=== PATIENT | male | born 1930 | race Caucasian/White ===

== ENCOUNTER 2016-06-22 03:05 | Inpatient (IN) | payer MEDICARE, OTHER ==
[~2016-06-22] VITALS: Ht 180.3 cm; Wt 112.6 kg
--- NOTE | ~2016-06-22 | ECH ---
Transthoracic Echocardiography Report (TTE) Demographics Patient Name CHITRA EDMONDSON Date of Study 06/23/2016 P Patient Number [id number] Visit Number [id number] Date of 1930 Room Number 311 Accession Number [id number] Gender Male Age 86 year(s) Referring Laura Dobson Transitional [employer] Teacher Noemy Encarnacion [facility] Physician Physician Interpreting Roshan Bryan [facility] Chief Physician Supervising Ordering Physician Laura Dobson MD, MD/P Nurse Stress [employer] Conclusions Summary Technically fair exam. The estimated left ventricular ejection fraction is 50-55%. Moderate to severe left ventricular hypertrophy. The right atrium is moderately dilated. Mild mitral regurgitation by color Doppler. There is trivial aortic regurgitation by color Doppler. Procedure Type of Study TTE procedure:Echo Complete SF. Procedure Date Date: 06/23/2016 Start: 10:28 AM Technical Quality: Fair due to body habitus. Additional Indications:AV block Appropriate Use Criteria: 9 Height: 71 inches Weight: 222 pounds BSA: 2.2 m Rhythm: Atrial fibrillation HR: 65 bpm BP: 128/52 mmHg M-Mode/2D Measurements LV Diastolic Dimension: 4.36 cm LV Systolic Dimension: 3.83 cm LV Septum Diastolic: 1.83 cm LV PW Diastolic: 1.42 cm AO Root Dimension: 2.9 cm Cardiac Output: 3.56 l/min LA Dimension: 4.69 cm Cardiac Index: 1.62 l/min*m RV Diastolic Dimension: 2.98 cm LA volume index: 33 ml/m LVOT: 1.88 cm IVC Inspiration: 1.85 cm LVOT VTI: 19.73 cm RV Base: 4.7 cm LV Stroke volume: 54.74 ml RV Mid: 3.4 cm LV Stroke volume index: 24.88 ml/m RV Length: 6.9 cm Doppler Measurements AV Peak Velocity: 1.15 m/s MV Peak E-Wave: 0.82 m/s AV Peak Gradient: 5.29 mmHg MV Peak A-Wave: 1.02 m/s AV Mean Gradient: 4.26 mmHg MV E/A Ratio: 0.8 LVOT Peak Velocity: 0.88 m/s MV P1/2t: 57 msec AV Area (Continuity):1.87 cm MV Deceleration Time: 196.5 msec TR Velocity:2.48 m/s MV Area (PHT): 3.86 cm TR Gradient:24.62 mmHg PV Peak Velocity: 0.94 m/s Estimated RAP:5 mmHg PV Peak Gradient: 3.5 mmHg Estimated RVSP: 30 mmHg Estimated PASP: 29.62 mmHg RA Area: 25.16 cm Findings Left Ventricle The left ventricle is normal in size . Moderate to severe left ventricular hypertrophy. Diastolic function indeterminate due to patient's arrhythmia. Right Ventricle Normal right ventricle structure and function. Left Atrium Normal left atrial size. Right Atrium The right atrium is moderately dilated. Mitral Valve Normal mitral valve structure and function. Mild mitral regurgitation by color Doppler. Aortic Valve The aortic valve is mildly sclerotic. There is trivial aortic regurgitation by color Doppler. Tricuspid Valve Normal appearing tricuspid valve. Trivial tricuspid regurgitation by color Doppler. Pulmonic Valve Normal pulmonic valve structure and function. Pericardial Effusion No evidence of pericardial effusion. Miscellaneous Visualized portions of the aortic root and ascending aorta appear normal in size. Pleural Effusion No evidence of pleural effusion. Contractility Score LV regional wall motion:(0-Non visualized 1-Normal 2-Hypokinesis 3-Akinesis 4-Dyskinesis 5-Aneurysm) Signature
--- NOTE | ~2016-06-22 | WND ---
ADMIT: 06/22/2016 RM/LOC: 410 [facility] MR#: [id number] [id number] [place], [place] [address] DELVISCHITRA Carly [address] [place] [address] Wound Care Clinic SEX: M AGE: 86 : 1930 DATE OF VISIT: 07/08/2016 TIME IN: 0840 hours. TIME OUT: 0855 hours. REASON FOR VISIT: Evaluation and treatment of skin concerns. HISTORY OF PRESENT ILLNESS: This is an 86-year-old male, who was seen previously in Wound Care in 2014 for right lower extremity venous insufficiency ulceration, bilateral lower extremity edema, and pressure ulceration over the right buttock. He was also seen in 2016 for evaluation of left lower extremity edema related to venous insufficiency. Most recently, he has been admitted to [facility] on 06/22/2016 with weakness and fatigue. He has been seen previously by Wound Care during this admission. According to the patient, he had toenails trimmed prior to admission and he had two blackened areas on his toe tips from where the skin was snipped along with the nail trimming. Wound Care follows today for re- evaluation and care. PAST MEDICAL HISTORY: 1. Hypertension. 2. Hyperlipidemia. 3. Multiple myeloma. 4. Type 2 diabetes mellitus. 5. Bilateral total knee arthroplasty. 6. Glaucoma. 7. Depression. 8. BPH. 9. Chronic bilateral lower extremity edema with venous insufficiency. 10.Chronic left lower extremity weakness. 11.Previous pressure ulceration on his buttock. CURRENT MEDICATIONS: Per the MAR. Please see the MAR for further details. 1. Apresoline. 2. Flomax. 3. Lexapro. 4. Mylicon. 5. Neurontin. 6. Nilstat. 7. Remeron. 8. Dulera. 9. DuoNeb. 10.Trusopt. 11.Xalatan. 12.NovoLog. 13.Lidoderm patch. 14.Heparin flush. 15.Normal saline. 16.Protonix. P.R.N. medications: ADMIT: 06/22/2016 RM/LOC: 410 [facility] MR#: [id number] [address] [address] CHITRA EDMONDSON [address] [place] [address] Wound Care Clinic SEX: M AGE: 86 : 1930 1. Colace. 2. Glutose. 3. Hydrocodone/acetaminophen. 4. Maalox. 5. Milk of magnesia. 6. Surfak. 7. Xanax. 8. DuoNeb. 9. Glucagon. 10.Tylenol suppositories. 11.Nitrostat. 12.Bactroban. 13.Nitro-Bid. 14.Reglan. 15.Zofran. ALLERGIES: No known medication allergies. FAMILY HISTORY: Significant for brother with bladder cancer. Mother with lung cancer. Second brother with cancer, type unknown. Father with a stroke. SOCIAL HISTORY: He is . He does reside in [place]. He is retired from working at [employer]. He used to smoke a pack and a half of cigarettes per day for 10-15 years, but quit more than 45 years ago. Occasional beer. No street drug usage. He is on a regular low carb diet. Likes coffee 1-2 cups per day, no soda. Highest level education is high school. He does have adult children, grandchildren, and great grandchildren. REVIEW OF SYSTEMS: He is examined in a hospital room where he is awake, alert, and oriented x3. He denies any recent fever or chills. No nausea or vomiting. His appetite is improving. He does have a congested cough. He denies any chest pain. He denies any pain in his legs. PHYSICAL EXAMINATION: VITAL SIGNS: Temperature 97.4, pulse 84, respirations 16, blood pressure 118/47, O2 sats with oxygen per nasal cannula is 97%. Body wide skin exam was done. He does have edema noted to both upper extremities. He does have bruising noted to both upper extremities. He has a small amount of serous oozing from the posterior left elbow. On his right wrist area, he has a small superficial ulceration that measures 1 cm x 0.4 cm, depth of 0.1 cm with a red moist wound base. No surrounding erythema or induration. To the bilateral lower extremities, he has edema noted. Right lower extremity 28 cm, ankle 28 cm, and calf 20 cm, malleolus is 29 cm. Posterior tibialis and dorsalis pedis is 1+. No openings noted on his villatoro or calf. On the tip of his second toe, next to his toenail, is a small dark crust that measures 0.4 cm x 0.6 cm. No surrounding erythema or induration. On the tip of the third toes, is a residual callus and pinpoint crust but no drainage, no redness, no irritation. To the left lower extremity, foot ADMIT: 06/22/2016 RM/LOC: 410 [facility] MR#: [id number] [address] [place] [address] [place] [address] Wound Care Clinic SEX: M AGE: 86 : 1930 circumference 26.5 cm, ankle 25 cm, and calf 20 cm, malleolus is 28 cm. Posterior tibialis and dorsalis pedis is 1+. He does have edema noted. No open areas noted. On his abdomen, toward the right pannus, is a large area of bruising that measures approximately 18 cm x 26 cm. He also has a dry crust on the right abdomen that measures 1 cm x 3 cm, but no surrounding erythema or induration. ASSESSMENT: 1. Edema to all four extremities. 2. Category III skin tear to right hand. 3. Residual traumatic injuries to toe tips, second and third toe, right foot. TREATMENT PLAN: At this point in time, we will continue with the current treatment plan. He is on a pressure relief mattress. Encouraged position changes every 2 hours. We will leave the crust to the toes open to the air at this point. Continue with Mepilex border to the right hand skin tear. Continue with EdemaWear to all of the four extremities. Thank you for this referral, and Wound will continue to follow while he is inpatient. Latonya Tuttle APRN/ kinza JOB #: [id number] CC: Zack Sanchez, Attending Physician Zack Sanchez, Family Physician
--- NOTE | ~2016-06-22 | CO ---
ADMIT: 06/22/2016 RM/LOC: 311 [facility] MR#: [id number] [address] [address] [address]ER [address] [place] [address] Consultation SEX: M AGE: 86 : 1930 DATE OF CONSULTATION: 07/01/2016 ATTENDING PHYSICIAN: Zack Sanchez CONSULTING PHYSICIAN: Braulio Knight MD ADDENDUM: For details of our full consultation, please see Zack Ornelas's note. I have reviewed his full note including his assessment and plan and I am in agreement with all of that. Mr. Streeter does have apparent ileus likely secondary to all that he has going on medically. CT scan, however, was approaching a week ago now. Nasogastric tube has been placed today. We will see how that does as far as symptom improvement overnight and reassess tomorrow. If symptoms are no better, I would consider repeating the CT scan with IV and oral contrast to reassess for obstructive findings versus ongoing signs of ileus. I discussed that with Manuel and his and they are in agreement with that plan. He certainly is at risk for any operative intervention because of his significant comorbidities, advanced age, and the like. Braulio Knight MD/ modl JOB #: [id number] CC: Zack Sanchez, Attending Physician Zack Sanchez, Family Physician
--- NOTE | 2016-06-22 19:06 | ER ---
ADMIT: 06/22/2016 RM/LOC: 311 [facility] MR#: [id number] [address] [address] DELVISCHITRA HASKINS [address] [place] [address] Emergency Room Report SEX: M AGE: 86 : 1930 DATE: 06/22/2016 The patient is an 86-year-old male who was brought by family because he woke up during the night and was feverish and had chills, was slightly confused, and was not at his baseline mental status. Per family and per chart, the patient had history of multiple myeloma, colon cancer, DVT, BPH and bowel obstruction. Patient per family is already on Coumadin. In the ER, patient had fever of 104, heart rate was 127-130, systolic blood pressure was about 115. The patient received Tylenol. Sepsis workup was started. On physical examination, the patient was awake, alert, would answer the question but when I brought the and daughters to the room, they said that the patient is slightly confused and is not at his baseline. The patient denied any pain or discomfort and states he is short of breath but he has been always short of breath at baseline. PHYSICAL EXAMINATION: VITAL SIGNS: In the ER, at the beginning patient had O2 saturation of 89%-90% at room air, and was put on 2 L nasal cannula and O2 saturation increased to mid 90s. NEURO: The patient had normal motor and sensory grossly. Cerebellar test grossly not contributed. HEAD and NECK: Exam did not find any abnormalities. I could not hear any bruit in the neck, trachea midline. LUNGS: Decreased breath sound bilaterally but I did not hear any crackles or wheezing. HEART: Sounds are normal. There is no murmur and no radiation of the murmur to the neck. ABDOMEN: Distended, but is nontender and bowel sounds are normal. There is no back pain or tenderness. EXTREMITIES: In the bilateral lower extremities, there is mild erythema mostly on the right leg which per patient has been there for some time. The patient has some tenderness to the palpation of the posterior right leg. Peripheral pulses are grossly normal. The patient moves all extremities. LABORATORY AND DIAGNOSTIC DATA: CT of the brain did not show any acute changes or bleeding. Chest x-ray was noncontributory. Cultures were sent. Urinalysis did not show any infection. Influenza antigen A and B were negative. White blood cell was 7.8, and absolute neutrophil count was 7.2, hemoglobin was 14.1. Lactic acid was 3.1, and procalcitonin was 1.5. Electrolytes; potassium was 4.6 with sodium of 142, carbon dioxide was 21. The patient had normal AST and ALT, creatinine was 1.6 and troponin was negative. EKG did not show any ST or T changes. INR was 2.2 with PTT of 32, and D-dimer was elevated to 1.92. The patient received IV fluid. CT angio of the chest was suggestive of pulmonary emboli in the right lower lobe although ADMIT: 06/22/2016 RM/LOC: 311 [facility] MR#: [id number] [address] [address] CHITRA EDMONDSON [address] [place] [address] Emergency Room Report SEX: M AGE: 86 : 1930 there are no obvious signs of infection except for possible cellulitis of the right leg. Considering the background of multiple myeloma, the increased risk of infection, 15 times should always be considered in these patients. Pulmonary emboli could also cause fever to some degree. The patient was started on heparin per protocol. After receiving fluid and empiric antibiotic, vancomycin and Zosyn, patient was reassessed. Tachycardia decreased to 105, systolic blood pressure is around 95-100. Per family, patient is more alert and oriented than before and answers all questions. Internal Medicine was consulted and patient was admitted for further followups and treatments of right lower lobe pulmonary emboli, altered mental status, SIRS, with questionable right lower extremity DVT. Doppler ultrasound of the lower extremities is pending. Salomon Alvarenga MD/ kinza JOB #: [id number] CC: Zack Sanchez MD, Attending Physician Zack Sanchez MD, Family Physician
--- NOTE | 2016-06-23 15:06 | CO ---
ADMIT: 06/22/2016 RM/LOC: 311 [facility] MR#: [id number] [address] [address] CHITRA EDMONDSON [address] [place] [address] Consultation SEX: M AGE: 86 : 1930 DATE OF CONSULTATION: 06/22/2016 ATTENDING PHYSICIAN: Zack Sanchez CONSULTING PHYSICIAN: Bc Islas MD REASON FOR CONSULT: Rhythm change. HISTORY OF PRESENT ILLNESS: Chitra is an 86-year-old gentleman with no prior cardiac history. I was asked to see him at the request of Dr. Sanchez after he was admitted with probable sepsis in the midst of immunocompromised state. During this hospitalization with hypotension, he had a rhythm change, appears to be second-degree type 1 AV block. His history is significant for multiple myeloma and history of colon cancer. He is diabetic and has a history of DVT, on chronic anticoagulation. He came into the hospital early today when he woke up during the night with a febrile illness. He had chills. I am not sure, it sounds like rigors. He had mental status changes. His blood culture is already showing Streptococcus species. His CT and chest x-ray suggested pneumonia, other potential cause would be a cellulitis of the lower extremities. He has received fluids. His blood pressure is better. His lactic acid was initially 3. His potassium was normal. PAST MEDICAL HISTORY: Significant for venous thrombosis. He has a history of colon cancer. He is actively treated for multiple myeloma. He has diabetes, hypertension, history of gout, neuropathy, and spinal stenosis. No known medical allergies. MEDICATIONS: Include: 1. Gabapentin. 2. Coumadin. 3. Diovan. 4. Glipizide. 5. Flomax. 6. Remeron. 7. Aldactone. 8. Dorzolamide. 9. . 10.Heather lynn.rmason. FAMILY HISTORY: Negative for premature coronary disease, otherwise noncontributory. SOCIAL HISTORY: He is . 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 Denies alcohol, significant smoking history, or illicit drug use. REVIEW OF SYSTEMS: A full 12-point review of systems was reviewed with the ADMIT: 06/22/2016 RM/LOC: 311 [facility] MR#: [id number] [address] [address] DELVISCHITRA Carly [address] [place] [address] Consultation SEX: M AGE: 86 : 1930 patient and noncontributory other than that mentioned above. PHYSICAL EXAMINATION: VITAL SIGNS: His blood pressure is currently 147/86. There is some question if it is accurate. His pulse is in the 60s. Respirations 18. He has a low grade fever of 100. GENERAL: He is alert. He is oriented. He answers all questions appropriately. He is actually in good humor. SKIN: Pale, but he feels warm. He is not clammy. Has good capillary refill. EYES: Sclerae clear. No xanthelasmas. ENT: There are transmitted upper airway sounds heard in his neck. Oral mucosa is pink and moist. No jugular venous distention or carotid bruits. CHEST: He has diffuse few expiratory wheezes versus transmitted airway sounds. HEART: Regular. Normal S1, normal S2. I do not hear any diastolic murmurs. I cannot feel the point of maximum impulse. ABDOMEN: Obese and protuberant, soft and nontender. EXTREMITIES: There is dark discoloration bilaterally. No open wounds are noted. There is trivial to mild edema. MUSCULOSKELETAL: Gait is normal. PSYCH: Alert and oriented. Mood and affect are appropriate. A 12-lead EKG shows second-degree type 1 AV block and sinus rhythm. LABORATORY DATA: Sodium is 142, potassium is 4.6. His creatinine is 1.6 with a glucose of 231, phosphorous is 1.8, total bilirubin 1.8, albumin 3.2, magnesium is 1.5, troponin is 0.104, and his CK is 108. Hemoglobin is 14.1, white count is 7.8, and platelet count 129,000. CT of the chest did not show any significant pulmonary emboli and lower extremity Dopplers are negative for DVT. IMPRESSION: 1. Streptococcal sepsis. 2. Probable pneumonia. 3. Second-degree type 1 AV block. 4. Immunocompromised state. 5. Multiple myeloma. 6. History of deep venous thrombosis, on chronic anticoagulation. 7. History of colon cancer. ADMIT: 06/22/2016 RM/LOC: 311 [facility] MR#: [id number] [address] [address] CHITRA EDMONDSON [facility] [place] [address] Consultation SEX: M AGE: 86 : 1930 8. Equivocal troponin. RECOMMENDATIONS: 1. On review of the EKG, it looks like Wenckebach with sinus rhythm. This was not a high-grade AV block and probably exacerbated by his acute illness and possibly even some electrolyte abnormalities. I would continue to monitor on tele. We will do an echo tomorrow. I do not see any clinical manifestations of possible endocarditis at this point. 2. No further specific intervention is needed at this time. 3. He does have an equivocal troponin, but I am quite sure this is due to his underlying illness and demand-type ischemia. He is quite sick with an immunocompromised state and strep sepsis. Bc Islas MD/ modl JOB #: [id number] CC: Zack Sanchez, Attending Physician Zack Sanchez, Family Physician
--- NOTE | 2016-06-27 14:21 | CO ---
ADMIT: 06/22/2016 RM/LOC: 311 [facility] MR#: [id number] [address] [address] [address] [place] [address] Consultation SEX: M AGE: 86 : 1930 DATE OF CONSULTATION: 06/23/2016 ATTENDING PHYSICIAN: Zack Sanchez CONSULTING PHYSICIAN: Shireen Horn APRN TIME IN: 1015 hours. TIME OUT: 1050 hours. REASON FOR CONSULTATION: Supportive Care consultation was requested by Dr. Sanchez for discussion of code status and goals for care. HISTORY OF PRESENT ILLNESS: Mr. Streeter is a delightful 86-year-old male with a history of multiple myeloma for which he follows with Oncology. He presented to the emergency room on June 22 with fever, chills, weakness, and fatigue. He was found to have community-acquired pneumonia and right lower extremity cellulitis. He also met the criteria for severe sepsis. He was on Levophed for a short time last evening, however, he has been able to be weaned off this. He feels a little better today. He remains in the ICU receiving care. His blood cultures are growing strep. Due to his complexities, Supportive Care consultation was requested to discuss goals for care. In terms of advanced directives, the patient does not have any living will or healthcare [id number] paperwork that he has completed. In terms of code status, he is a full code at the initial time of assessment. His next of kin medical decision maker is his , Adina Streeter whose phone #[phone]. He also has 2 daughters who are involved with his care as well. Symptomatically, the patient denies complaints. He is slightly dyspneic at times per his report, but overall feels fairly well. He does appear weak and tired today. PAST MEDICAL HISTORY: Multiple myeloma, hypertension, hyperlipidemia, type 2 diabetes mellitus, bilateral total knee arthroplasties, glaucoma, depression, BPH, chronic left lower extremity weakness. ALLERGIES: THE PATIENT HAS NO KNOWN MEDICATION ALLERGIES. CURRENT MEDICATIONS: Please see the patient's MAR for specific routes and dosages. His current medications are as follows. 1. Dulera. 2. Vancomycin. 3. Novolin R. 4. Heparin. 5. DuoNeb. 6. Flomax. 7. Xalatan. ADMIT: 06/22/2016 RM/LOC: 311 [facility] MR#: [id number] [address] [address] [address] [place] [address] Consultation SEX: M AGE: 86 : 1930 8. Glutose. 9. Glucagon. 10.D5 normal saline. 11.D50. 12.Neurontin. 13.Synthroid. 14.Trusopt. 15.Bactroban. 16.Hutchins. 17.Levaquin. 18.Solu-Medrol. 19.Zosyn. 20.Nitro-Bid. 21.Levophed. 22.Tylenol. 23.Normal saline. SOCIAL HISTORY: The patient is . He was living at home. 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 He does not use alcohol, drugs, or tobacco. FAMILY HISTORY: Reviewed and noncontributory. REVIEW OF SYSTEMS: A 10-point review of systems was completed and other than those pertinent positives and negatives mentioned the HPI, it is negative. FUNCTION REVIEW: Prior to his hospital stay, he was at home. He was independent for ADLs. He was still working. His palliative performance scale prior to admission was around 80%-90%. Currently, he is mostly in bed. He is requiring considerable assistance. His intake is normal to reduced. He is fully conscious. His current palliative performance scale is a 50%-60%. PHYSICAL EXAMINATION: GENERAL: The patient is examined in the bed. He is in no acute distress. VITAL SIGNS: Temperature 99.2, pulse 56, respirations 29, blood pressure 135/55, and oxygen 96% on room air. HEENT: Head is normocephalic. Pupils are equal, round, and reactive with diameter of 3 mm bilaterally. Oral mucosa pink and moist. Fair dentition. NECK: Supple. RESPIRATORY: Respirations are equal and nonlabored at rest. LUNGS: Diminished throughout. CARDIOVASCULAR: Rate and rhythm regular without murmurs, rubs, or gallops. 2+ bilateral lower extremity edema noted. GASTROINTESTINAL: Obese. Bowel sounds are positive. MUSCULOSKELETAL: Generalized weakness. No obvious joint deformities. INTEGUMENTARY: Skin turgor is fair. He does have a right lower extremity cellulitis noted. NEUROLOGIC: Alert and oriented x3. He will follow commands. PSYCHIATRIC: Calm and cooperative. No agitation or delirium noted. ADMIT: 06/22/2016 RM/LOC: 311 [facility] MR#: [id number] [address] [address] [address] [place] [address] Consultation SEX: M AGE: 86 : 1930 DIAGNOSTIC DATA: Sodium 138, potassium 4.6, BUN 29, creatinine 1.8, total protein 6.9, and albumin 1.9. WBC 13.8, hemoglobin 11.4, hematocrit 34.7, and platelets are 101. IMPRESSION: 1. Debility. 2. Fatigue. 3. Malaise. 4. Severe protein calorie malnutrition. 5. Community-acquired pneumonia. 6. Severe sepsis. 7. Right lower extremity cellulitis. 8. Diabetes mellitus type 2. 9. Lactic acidosis. 10.Multiple myeloma. 11.Palliative care. 12.The patient is a full code at the initial time of our assessment. PLAN OF TREATMENT: 1. I was able to meet with the patient and his 2 daughters at the bedside. We reviewed his status and goals for the time ahead. He understands that he is critically ill, but states that he is feeling better today. He is hopeful for ongoing improvement with the goal of getting back home. 2. We did discuss at length the benefit versus burden of a full code status versus a do not resuscitate status versus a do not resuscitate/do not intubate status. After discussion, the patient desires to be a DNR as he understands that the burden outweighs the benefit in terms of receiving CPR and defibrillation. He does state that he would like short-term ADMIT: 06/22/2016 RM/LOC: 311 [facility] MR#: [id number] [address] [place] [address] [address] [facility] [place] [address] Consultation SEX: M AGE: 86 : 1930 intubation as needed. He is very clear that he would not want to have long-term intubation and family agrees with this as well. The patient directs a do not resuscitate status at this time with okay for intubation. The patient's family verbalizes understanding of this and agrees with this plan as well. 3. We will continue to follow along and discuss goals for care pending this patient's status in the time ahead. We would like to thank Dr. Sanchez for the invitation to participate in this patient's care. Total consultation time was 35 minutes from 1015 hours to 1050 hours with 20 minutes from 1020 hours 1040 hours spent [id number] with the patient and family discussing goals for care and providing counseling and support. We will continue to follow along. Shireen Horn APRN/ kinza JOB #: [id number] CC: Zack Sanchez, Attending Physician Zack Sanchez, Family Physician
--- NOTE | 2016-06-30 08:22 | HP ---
ADMIT: 06/22/2016 RM/LOC: 311 [facility] MR#: [id number] [address] [address] [address] [place] [address] History and Physical SEX: M AGE: 86 : 1930 DATE OF SERVICE: CHIEF COMPLAINT: Weakness and fatigue. HISTORY OF PRESENT ILLNESS: This is a very nice 86-year-old man, who is very well known to my service. He does have a history of type 2 diabetes mellitus as well as he does have a history of multiple myeloma. He is evaluated in the ER by Dr. Alvarenga in the Emergency Department secondary to weakness, chills, fevers, and fatigue. He was also slightly confused at that time. They did initiate a sepsis workup on him in the ER, and he did undergo various CT scans and laboratory evaluations, given a diagnosis of SIRS criteria and a right lower lobe pulmonary embolism and a question of DVT. They do contact my partner, Dr. Momo Benavides. Dr. Benavides does give orders to initiate him on vancomycin and Zosyn as well as a clear liquid diet and some normal saline. His care was transitioned to myself on the morning of June 22. I did evaluate him at his bedside. He states he has had several days of increased weakness and fatigue as well as increased pain in his right lower extremity as well as he has been having chills. He was just seen in clinic to have some lesions removed with cryotherapy and at that time, he was actually doing well, however, he did have a rather rapid decline. He is resting quietly in bed. He is currently receiving a heparin infusion, and he does have a very severe right lower extremity pain. PAST MEDICAL HISTORY: 1. Hypertension. 2. Hyperlipidemia. 3. Multiple myeloma. 4. Type 2 diabetes mellitus. 5. Bilateral total knee arthroplasties. 6. Glaucoma. 7. Depression. 8. BPH. 9. Chronic left lower extremity weakness. MEDICATIONS: 1. Latanoprost. 2. Dorzolamide. 3. Glipizide. 4. Spironolactone. 5. Levothyroxine. 6. Gabapentin. 7. Warfarin. 8. Drayton. 9. Dexamethasone. 10.Tamsulosin. 11.EpiPen. 12.Multivitamin. 13.Bactroban. ADMIT: 06/22/2016 RM/LOC: 311 [facility] MR#: [id number] [address] [address] [address] [place] [address] History and Physical SEX: M AGE: 86 : 1930 ALLERGIES: NO KNOWN MEDICAL ALLERGIES. FAMILY HISTORY: Reviewed with the patient and is noncontributory to this hospitalization. SOCIAL HISTORY: He does not drink, smoke, or do drugs. He is happily . He has a very supportive family. 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 REVIEW OF SYSTEMS: A complete review of systems reviewed per HPI. PHYSICAL EXAMINATION: VITAL SIGNS: Blood pressure 119/56, pulse 108, respiratory rate is 26, temperature is 100.4, 93% on O2. GENERAL: He is alert and oriented x3. He is noticeably uncomfortable. HEENT: Normocephalic and atraumatic. Extraocular movements are intact. Pupils are equal and responsive to light. Nose, no nasal discharge. He has dry mucous membranes. HEART: Tachycardic, but does appear to be regular. LUNGS: He does have some wheezing bilaterally. ABDOMEN: Soft, nontender, and nondistended. EXTREMITIES: He has increased edema, and he has a senia cellulitis of his right lower extremity. LABORATORY DATA AND IMAGING: Urine cultures are drawn and pending. Urinalysis without senia UTI. White blood cells are 7.8, hemoglobin is 14.1, platelets are 129, influenza A and B are negative. Lactic acid is 3.1. ProTime is 2.20. Sodium is 142, potassium is 4.6, chloride is 110, bicarb is 28, BUN is 22, creatinine is 1.6, glucose is 231, calcium is 8.1, phosphorus is 1.8. Total bilirubin is 1.8, total protein 6.4, albumin is 3.2, alkaline phosphatase is 89, AST is 27, ALT is 27, mag is 1.5. CK is 108, CK-MB is 2.2, troponin is 0.029. Ammonia is 42, procalcitonin is 1.5. Head CT without contrast is no acute process. CTA of his chest, over-read by the radiologist here, says there is no PE, but he does have a ground-glass apical consolidation consistent with inflammation versus pneumonia. Repeat lactic acid is 4.3. Chest x-ray, negative. EKG sinus tachycardia. ASSESSMENT: 1. Community-acquired pneumonia. 2. Acute renal failure. 3. Right lower extremity cellulitis. 4. Severe sepsis. 5. Type 2 diabetes mellitus. 6. Multiple myeloma. 7. Lactic acidosis. PLAN: The patient does have severe sepsis right now. He does have some ADMIT: 06/22/2016 RM/LOC: 311 [facility] MR#: [id number] [facility] [address] [address] [address] [facility] [place] [address] History and Physical SEX: M AGE: 86 : 1930 wheezing on examination. I am going to go ahead and broaden out his antibiotics with the addition of Levaquin. There is no evidence of a pulmonary embolism on over-read on the CTA of his chest. Therefore, I am going to discontinue his heparin infusion. I am going to hold his Coumadin for the time being right now. I am going to go ahead and add IV steroids, Solu-Medrol 125 mg IV q.[address] the respiratory fan panel. I will place him on some bronchodilators. I will go ahead and x-ray his right leg. There is no crepitus on exam or anything like that, but he does have substantial cellulitis. I will place an ABG now. I will increase his fluid resuscitation. Replace his magnesium and go ahead and follow up his lactic acid. His condition is guarded. He initially says he wants to be a full code, and after discussion with the family, changes to DNR/DNI, but that really if he changes himself back to a full code. I discussed this plan with the patient, who expressed understanding and was in agreement. I did discuss with him that he needs to be here or he potentially could become very ill. However, we will continue aggressive therapy. I discussed this plan with the patient, who expressed understanding, was in agreement, and had no further questions. Zack Sanchez MD/ kinza JOB #: [id number] CC: Zack Sanchez, Attending Physician Zack Sanchez, Family Physician
--- NOTE | 2016-07-06 08:28 | CO ---
ADMIT: 06/22/2016 RM/LOC: 311 [facility] MR#: [id number] [address] [address] [address] [place] [address] Consultation SEX: M AGE: 86 : 1930 DATE OF CONSULTATION: 07/01/2016 ATTENDING PHYSICIAN: Zack Sanchez CONSULTING PHYSICIAN: Braulio Knight MD REASON FOR CONSULTATION: Ileus. HISTORY OF PRESENT ILLNESS: Chitra is a very pleasant 86-year-old male, who unfortunately has multiple comorbidities, who has been admitted to the hospital because he screened positive for sepsis and just overall was not feeling well. Since then, he has been admitted to the hospital and been worked up for pneumonia and right lower extremity DVT. During his hospital stay, the patient has developed some bowel issues including abdominal distention, no appetite, and abdominal pain with nausea. He has had a couple times emesis in the past. Currently, however, the patient has been able to have a bowel movement this morning and has been passing flatus. His abdominal pain has resolved, however, he is still bloated with no appetite and still nauseous. It is to the point where he does want to eat anything at all today. He did have one episode like this many years ago that required surgery, I believe it was for lysis of adhesions for small bowel obstruction. He does have other pertinent surgical history, please see below. PAST MEDICAL HISTORY: Significant for: 1. Type 2 diabetes. 2. Multiple myeloma. 3. Hypertension. 4. Hyperlipidemia. 5. Glaucoma. 6. Depression. 7. BPH. PAST SURGICAL HISTORY: 1. Right hemicolectomy for cecal mass in 2002. 2. Exploratory laparotomy with lysis of adhesions. In 2010. 3. Bilateral TKA. ALLERGIES: NO KNOWN DRUG ALLERGIES. MEDICATIONS: Well documented in chart. FAMILY HISTORY: Noncontributory. SOCIAL HISTORY: The patient denies any tobacco, alcohol, or illicit drug use. REVIEW OF SYSTEMS: CONSTITUTIONAL: The patient denies any fever, chills, or night sweats. The rest of comprehensive 10-point review of systems was performed and all other systems are negative. ADMIT: 06/22/2016 RM/LOC: 311 [facility] MR#: [id number] [address] [address] [address] [place] [address] Consultation SEX: M AGE: 86 : 1930 PHYSICAL EXAMINATION: GENERAL: The patient is in no acute distress. He is alert and oriented. HEENT: Head is normocephalic and atraumatic. EOMS are intact. Conjunctivae free of icterus, erythema, or pallor. Pinnae, free of deformities. Nose, midline. No tracheal deviation. NECK: Supple. SKIN: Multiple bruising noted consistent with anticoagulation therapy. Negative for jaundice, clubbing, edema, pallor, or cyanosis. LUNGS: Normal respiratory effort. HEART: Distal pulses are intact. ABDOMEN: Distended but soft and nontender. Multiple incisional scars noted upon abdomen. NEURO: Grossly intact. DIAGNOSTIC IMAGING: CT of abdomen and pelvis 6 days ago revealed ileus. ASSESSMENT: Ileus. PLAN: Given that the patient still has bowel function, and him being on anticoagulation therapy, he is not a surgical candidate at this time. However, I do agree with NG decompression and adding on a bowel regimen. I will discontinue lactulose and we will try milk of magnesia with the patient, but I am also considering MiraLax and Colace down the road should if he need a little more assistance. We will watch him in the hospital and see how he does, but he also needs to ambulate. Thank you for the consultation of this patient. JENN Mccoy / Braulio Knight MD / kinza JOB #: [id number] CC: Zack Sanchez, Attending Physician Zack Sanchez, Family Physician
--- NOTE | 2016-07-19 09:46 | CO ---
ADMIT: 06/22/2016 RM/LOC: 410 [facility] MR#: [id number] [address] [address] [address] [place] [address] Consultation SEX: M AGE: 86 : 1930 DATE OF CONSULTATION: 07/12/2016 ATTENDING PHYSICIAN: Zack Sanchez CONSULTING PHYSICIAN: Jailyn Stallings MD REASON FOR CONSULTATION: Acute kidney injury. HISTORY OF PRESENT ILLNESS: Chitra is a pleasant 86-year-old male who has a history of renal insufficiency at baseline with a creatinine of 1.2 to 1.3. He was admitted to the hospital about 3 weeks ago with a diagnosis of community-acquired pneumonia with sepsis. He was treated with antibiotics. Hospital course has also been complicated by ileus requiring nonsurgical management. He had an acute kidney injury about a couple weeks ago with a peak creatinine of 1.6 that had improved to 1.2. About 3 or 4 days ago, his Cummins catheter was removed. He has had an elevation in his serum creatinine and his creatinine is 2.1 today. It was 1.9 yesterday, 1.8 the day before, and 1.6 prior to that. Otherwise, his creatinine had come down nicely to 1.2. He has not had much of an appetite. He has some dietary restrictions too considering his aspiration risk. He himself denies any urinary complaints and he thinks that he has been emptying his bladder okay. He denies any dyspnea or chest pain. Denies any skin rash. He does have a sore on his bottom. REVIEW OF SYSTEMS: A complete review of systems is negative in detail except as mentioned in history of present illness above. PAST MEDICAL HISTORY: 1. Hypertension. 2. Hyperlipidemia. 3. Type 2 diabetes mellitus. 4. Multiple myeloma. 5. Bilateral total knee arthroplasty. 6. Glaucoma. 7. Depression. 8. BPH. 9. Lower extremity weakness. MEDICATIONS: Reviewed in the chart. ALLERGIES: NO KNOWN DRUG ALLERGIES. FAMILY HISTORY: No family history of chronic kidney disease or renal replacement therapy. SOCIAL HISTORY: Lives at home with his . His son is very involved in his care. Denies any tobacco, alcohol, or recreational drug use. PHYSICAL EXAMINATION: VITAL SIGNS: Temperature 97.7 Fahrenheit, pulse 74, ADMIT: 06/22/2016 RM/LOC: 410 [facility] MR#: [id number] [address] [address] [address] [place] [address] Consultation SEX: M AGE: 86 : 1930 and blood pressure 124/54. GENERAL: He is comfortable in bed. HEENT: Head is nontraumatic and normocephalic. Pale conjunctivae. Dry mucosa. NECK: Supple. No JVD. CHEST: Clear to auscultation. CVS: Regular rhythm. S1, S2 heard. No rubs, murmurs, or gallops. ABDOMEN: Soft and nontender. EXTREMITIES: 1+ bilateral lower extremity edema. SKIN: No rash or nodules. NEUROLOGIC: Alert, awake, and oriented x3, is able to move all his extremities. LABORATORY DATA: Reviewed. BMP with sodium 145, potassium 4.5, creatinine 2.1, calcium 7.4, and magnesium 2.4. His hemoglobin was 7.9. ASSESSMENT AND PLAN: Acute kidney injury - considering his history of BPH and recent removal of Cummins catheter, I will obtain a bladder scan to evaluate for any urinary retention. He made a straight cath as well to obtain a urinalysis and urine studies. His acute kidney injury may also be prerenal in etiology and I agree with IV fluids and encouraging nutrition as well as protein shakes. He is hemodynamically stable at this time and I will monitor his kidney function with above interventions and make changes depending upon his clinical course. Thank you for this consultation. Please do not hesitate to contact me with any questions. Jailyn Stallings MD/ kinza JOB #: [id number] CC: Zack Sanchez, Attending Physician Zack Sanchez, Family Physician
[2016-07-19] MEDS ORDERED: DELTASONE DPS20 MG PO (11:24)
[2016-07-19] MEDS ORDERED: DELTASONE DPS10 MG PO (11:24)
[2016-07-19] MEDS ORDERED: FLOMAX DPS0.4 MG PO (11:24)
[2016-07-19] MEDS ORDERED: LEXAPRO DPS10 MG PO (11:24)
[2016-07-19] MEDS ORDERED: DULERA 200/58.8 GM IH (11:25)
[2016-07-19] MEDS ORDERED: NEURONTIN DPS300 MG PO (11:25)
[2016-07-19] MEDS ORDERED: PROTONIX40 MG PO (11:25)
[2016-07-19] MEDS ORDERED: REMERON DPS30 MG PO (11:25)
[2016-07-19] MEDS ORDERED: MYLICON DPS80 MG PO (11:25)
[2016-07-19] MEDS ORDERED: XALATAN2.5 ML OU (11:26)
[2016-07-19] MEDS ORDERED: DULCOLAX-DPS10 MG PR (11:26)
[2016-07-19] MEDS ORDERED: TRUSOPT 2% DPS10 ML OU (11:26)
[2016-07-19] MEDS ORDERED: NOVOLOG FL100 UNIT/1 SQ (11:27)
[2016-07-19] MEDS ORDERED: MYCOSTATIN PWD15 GM TP (11:28)
[2016-07-19] MEDS ORDERED: DUONEB DPS3 ML IH (11:29)
[2016-07-19] MEDS ORDERED: HYDROCODON-ACE1 EAC4 PO (11:30)
[2016-07-19] MEDS ORDERED: MAALOX DPS30 ML PO (11:35)
[2016-07-19] MEDS ORDERED: MILK OF MAGNESI10 ML PO (11:35)
[2016-07-19] MEDS ORDERED: SPIRONOLACTONE25 MG PO (11:37)
[2016-07-19] MEDS ORDERED: LEVOTHYROXINE50 MCG PO (11:37)
[2016-07-19] MEDS ORDERED: EPIPEN 2-P0.3 MG/0.3 SQ (11:38)
[2016-07-19] MEDS ORDERED: THERAPEUTIC MUL1 TAB PO (11:38)
[2016-07-19] MEDS ORDERED: MUPIROCIN22 GM TP (11:39)
--- NOTE | 2016-08-01 08:00 | DS ---
ADMIT: 06/22/2016 RM/LOC: 410 [facility] MR#: [id number] [address] [address] [place] [address] Discharge Summary SEX: M AGE: 86 : 1930 ADMISSION DATE: 06/22/2016 DISCHARGE DATE: 07/18/2016 CONSULTATIONS: 1. Bc Islas MD, with Cardiology. 2. Shireen Horn APRN, with Supportive Care. 3. Braulio Knight MD, with General surgery. 4. Jailyn Stallings MD, with Nephrology. 5. Pulmonary/Critical Care. FINAL DIAGNOSES: 1. Second-degree heart block type 2. 2. Pleural effusions. 3. Community-acquired pneumonia. 4. Severe sepsis. 5. Acute renal failure. 6. Recurrent lower extremity cellulitis. 7. Lactic acidosis. 8. Right lower extremity DVT (deep venous thrombosis). 9. Gastrointestinal bleeding. 10.Acute blood loss anemia. 11.Presumptive retroperitoneal bleeding not confirmed on repeat imaging. 12.Physical deconditioning. 13.Lower extremity weakness. 14.Dysphagia. 15.Urinary retention. 16.Candiduria. 17.Depression. 18.Aspiration. REASON FOR ADMISSION: Please see H and P. However, briefly, Chitra is admitted with severe sepsis. HOSPITAL COURSE: Chitra is admitted to the service of [facility] under the care of myself, Zack Sanchez MD. Receives goal- directed therapy for sepsis as well as appropriate consultations. He did have a long post sepsis recovery with some complication of gastrointestinal bleeding, right lower extremity DVT, as well as severe deconditioning, ultimately dysphagia and aspiration, as well as acute renal failure and urinary retention. Please see records for all the details. However, he received various consultations at his hospitalization as appropriate. He did also have procedures for a thoracentesis, which I feel that it somewhat did improve his respiratory status. He ultimately does complete his antibiotic therapy. He does require also an IVC filter placement secondary to a gastrointestinal bleeding versus retroperitoneal bleeding, which was initially seen on noncontrast CT, not confirmed on contrasted CT. However, he did have an IVC filter placement secondary to his history of lower extremity DVTs and acute DVT in his right lower extremity. ADMIT: 06/22/2016 RM/LOC: 410 [facility] MR#: [id number] [address] [address] [facility] [place] [address] Discharge Summary SEX: M AGE: 86 : 1930 The patient did receive consultation with Supportive Care as well. Ultimately decided on DNR/DNI status. He is just very much wanting to go home and get out of the hospital. He does improve to a point that he is able to discharge to a facility on July 14. DISPOSITION: senior living facility. DISCHARGE CONDITION: Stable. DISCHARGE MEDICATIONS: See the medication reconciliation, it is reviewed and accurate. DISCHARGE INSTRUCTIONS: He will discharge to the long term facility. He will continue the medication reconciliation as noted above. He will continue his oxygen current O2 settings. He also wears CPAP at night. We will have him follow up with me in my office in two weeks' time and continue PT/OT and Speech Therapy, and he will continue wound care for his lower extremities. He will follow up with Urology on August 04 and [facility] on August 16. I discussed this plan with the patient, as well as patient's daughter and patient's . They all expressed understanding, were in agreement, and had no further questions. A total of 35 minutes spent on discharge activities of this patient. Zack Sanchez MD/ liza JOB #: [id number] CC: Zack Sanchez MD, Attending Physician Zack Sanchez MD, Family Physician
[2016-08-04] MEDS ORDERED: KLOR-CON M2020 ME1 PO (11:04)
[2016-08-04] MEDS ORDERED: LASIX DPS40 MG PO (11:10)
[2016-08-04] MEDS ORDERED: BACTRIM DS TAB1 EACH PO (11:11)
[2016-08-04] MEDS ORDERED: AUGMENTIN 250250 MG PO (11:11)
[2016-08-04] MEDS ORDERED: LAMISIL TP (11:13)
== END 2016-07-18 11:41 | DRG 853 ==
LOC: ER 03:05 → 4PCU 06:40 → 3ICU 06:40 → 4PCU 07-01 23:54
PROVIDERS: ADMIT Internal Medicine
PROC: 03HY32Z Insertion of Monitoring Device into Upper Artery, Percutaneous Approach (ICD-10-PCS; principal; 2016-06-22)
PROC: 3E0436Z Introduction of Nutritional Substance into Central Vein, Percutaneous Approach (ICD-10-PCS; 2016-06-25)
PROC: 30233N1 Transfusion of Nonautologous Red Blood Cells into Peripheral Vein, Percutaneous Approach (ICD-10-PCS; 2016-07-03)
PROC: 06H03DZ Insertion of Intraluminal Device into Inferior Vena Cava, Percutaneous Approach (ICD-10-PCS; 2016-07-04)
DX: A40.9 Streptococcal sepsis, unspecified (principal); J18.9 Pneumonia, unspecified organism; E43 Unspecified severe protein-calorie malnutrition; N17.9 Acute kidney failure, unspecified; K66.1 Hemoperitoneum; I82.431 Acute embolism and thrombosis of right popliteal vein; N18.3 Chronic kidney disease, stage 3 (moderate); C90.01 Multiple myeloma in remission; K56.7 Ileus, unspecified; L03.115 Cellulitis of right lower limb; D62 Acute posthemorrhagic anemia; E87.0 Hyperosmolality and hypernatremia; R65.20 Severe sepsis without septic shock; J44.9 Chronic obstructive pulmonary disease, unspecified; I48.91 Unspecified atrial fibrillation; E87.70 Fluid overload, unspecified; E11.22 Type 2 diabetes mellitus with diabetic chronic kidney disease; R13.10 Dysphagia, unspecified; I12.9 Hypertensive chronic kidney disease with stage 1 through stage 4 chronic kidney disease, or unspecified chronic kidney disease; E11.40 Type 2 diabetes mellitus with diabetic neuropathy, unspecified; I44.1 Atrioventricular block, second degree; H40.9 Unspecified glaucoma; F32.9 Major depressive disorder, single episode, unspecified; E78.5 Hyperlipidemia, unspecified; D64.9 Anemia, unspecified; R79.1 Abnormal coagulation profile; N40.1 Benign prostatic hyperplasia with lower urinary tract symptoms; R33.8 Other retention of urine; R09.02 Hypoxemia; R31.9 Hematuria, unspecified; Z85.038 Personal history of other malignant neoplasm of large intestine; Z96.653 Presence of artificial knee joint, bilateral; Z86.718 Personal history of other venous thrombosis and embolism; Z66 Do not resuscitate; Z79.01 Long term (current) use of anticoagulants

== ENCOUNTER 2016-07-21 06:38 | Emergency (ER) | payer MEDICARE, OTHER ==
[~2016-07-21 06:38] MED LIST: DELTASONE DPS10 MG PO; DELTASONE DPS20 MG PO; DULCOLAX-DPS10 MG PR; DULERA 200/58.8 GM IH; DUONEB DPS3 ML IH; EPIPEN 2-P0.3 MG/0.3 SQ; FLOMAX DPS0.4 MG PO; HYDROCODON-ACE1 EAC4 PO; LEVOTHYROXINE50 MCG PO; LEXAPRO DPS10 MG PO; MAALOX DPS30 ML PO; MILK OF MAGNESI10 ML PO; MUPIROCIN22 GM TP; MYCOSTATIN PWD15 GM TP; MYLICON DPS80 MG PO; NEURONTIN DPS300 MG PO; NOVOLOG FL100 UNIT/1 SQ; PROTONIX40 MG PO; REMERON DPS30 MG PO; SPIRONOLACTONE25 MG PO; THERAPEUTIC MUL1 TAB PO; TRUSOPT 2% DPS10 ML OU; XALATAN2.5 ML OU
--- NOTE | 2016-07-30 06:57 | ER ---
ADMIT: 07/21/2016 RM/LOC: ER [facility] MR#: [id number] [address] [place], [place] [address] [facility] [address] Emergency Room Report SEX: M AGE: 86 : 1930 DATE: 07/21/2016 ADDENDUM: An 86-year-old gentleman who had recent prolonged hospitalization. He was discharged home 3-4 days ago to [facility], comes in this morning with increased oxygen requirements. He does state that he felt a little short of breath overnight. He does have diagnosis of PE and pneumonia during his last hospitalization and is currently using 2 L of oxygen at baseline. His workup in the ER showed that he had a little bit increased fluid on his chest x-ray and had a BNP of 2793. His white count is 12.2 with hemoglobin of 9.3. Chemistries were unremarkable. I discussed the case with Dr. Sanchez, and we will give the patient an IV dose of Lasix here as he appears to be fluid overloaded. He will be on Lasix b.i.d. for the next 2 days and switch to 40 mg daily and he will get recheck by Dr. Sanchez early next week. The patient is discharged home in good condition. DIAGNOSES: 1. Fluid overload. 2. Congestive heart failure. 3. Short of breath. Justus Abraham MD/ kinza JOB #: [id number] CC: Mushtaq Peck MD, Attending Physician Zack Sanchez MD, Family Physician
[2016-08-04] MEDS ORDERED: KLOR-CON M2020 ME1 PO (11:04)
[2016-08-04] MEDS ORDERED: LASIX DPS40 MG PO (11:10)
[2016-08-04] MEDS ORDERED: AUGMENTIN 250250 MG PO (11:11)
[2016-08-04] MEDS ORDERED: BACTRIM DS TAB1 EACH PO (11:11)
[2016-08-04] MEDS ORDERED: LAMISIL TP (11:13)
== END 2016-07-21 09:15 | disposition home or self-care (01) ==
LOC: ER 06:38
DX: I50.9 Heart failure, unspecified (principal); I10 Essential (primary) hypertension; J44.9 Chronic obstructive pulmonary disease, unspecified; F32.9 Major depressive disorder, single episode, unspecified; E03.9 Hypothyroidism, unspecified; E11.9 Type 2 diabetes mellitus without complications

== ENCOUNTER 2016-07-30 17:46 | Inpatient (IN) | payer MEDICARE, OTHER ==
[~2016-07-30] VITALS: Ht 180.3 cm; Wt 109.8 kg
--- NOTE | 2016-08-04 10:40 | DS ---
ADMIT: 07/30/2016 RM/LOC: 414 [facility] MR#: [id number] [address] [place] [address] Discharge Summary SEX: M AGE: 86 : 1930 ADMISSION DATE: 07/30/2016 DISCHARGE DATE: 08/03/2016 CONSULTATIONS: None. FINAL DIAGNOSES: 1. Sepsis, resolved. 2. Cellulitis, resolving. 3. Edema, improving. 4. Urinary retention. 5. COPD (chronic obstructive pulmonary disease). 6. Deconditioning. 7. Type 2 diabetes mellitus. 8. Hypomagnesemia. 9. Hypokalemia. 10.Impaired mobility. REASON FOR ADMISSION: Please H and P dictated by Dr. Adame. However, Chitra Edmondson is admitted for sepsis. HOSPITAL COURSE: Admitted to the service of [facility] under the care of Dr. Adame. Receives goal-directed therapy for sepsis as various metabolic derangements. Care was transitioned to myself on August 01, 2016. Further goal-directed therapy with the initiation of diuresis. Stable on his oxygen. Laboratories stable. Cellulitis improving. He is transitioned to an oral regimen as well as oral diuretic regimen. He will discharge to [facility] facility and follow up with myself in five days time with repeat laboratories in 48 hours. DISPOSITION: residential facility. DISCHARGE CONDITION: Stable. ADMIT: 07/30/2016 RM/LOC: 414 [facility] MR#: [id number] [address] [place] [address] CHITRA EDMONDSON [facility] [place] [address] Discharge Summary SEX: M AGE: 86 : 1930 DISCHARGE MEDICATIONS: See medication reconciliation, reviewed and accurate. DISCHARGE INSTRUCTIONS: Discharge to [facility] facility with the above medication reconciliation. Continue diuresis, clearly delineated. Continue wound care, clearly delineated. Continue oxygen support, clearly delineated as well as repeat laboratories on August 05. Follow up with my office on August 08. I discussed this plan with the patient, expressed understanding, was in agreement and had no further questions. Thirty-five minutes spent on discharge activity of this patient. Zack Sanchez MD/ lennyg JOB #: [id number] CC: Zack Sanchez MD, Attending Physician Zack Sanchez MD, Family Physician
[2016-08-04] MEDS ORDERED: KLOR-CON M2020 ME1 PO (11:04)
[2016-08-04] MEDS ORDERED: LASIX DPS40 MG PO (11:10)
[2016-08-04] MEDS ORDERED: BACTRIM DS TAB1 EACH PO (11:11)
[2016-08-04] MEDS ORDERED: AUGMENTIN 250250 MG PO (11:11)
[2016-08-04] MEDS ORDERED: LAMISIL TP (11:13)
--- NOTE | 2016-08-09 09:43 | HP ---
ADMIT: 07/30/2016 RM/LOC: 311 [facility] MR#: [id number] [address] [address] [place] [address] History and Physical SEX: M AGE: 86 : 1930 DATE OF SERVICE: CHIEF COMPLAINT: Fever, low blood pressure. HISTORY OF PRESENT ILLNESS: Mr. Streeter is a very pleasant 86-year-old man. He has a past medical history significant for recent prolonged hospitalization with severe sepsis as well as a history of right lower extremity DVT, history of atrial fibrillation, depression, multiple myeloma, hypertension, second- degree heart block, and acute kidney injury, who presented to the ER after being found to have a fever at the group home. He was noted to have a fever of 101. He reports that he just felt like he had a flu coming on. He reports that he did not have any chest pain, pressure. No cough. He has some chronic shortness of breath. He is being treated for bilateral lower extremity cellulitis. He has some open wounds on his anterior villatoro that are being treated. He was recently hospitalized from June 22, 2016 to July 18, 2016 with community-acquired pneumonia and severe sepsis secondary to bilateral lower extremity cellulitis. He was recovering at the group home. He reports that otherwise nothing else is new or different. He has had a chronic indwelling Cummins since this happened. PAST MEDICAL HISTORY: Significant for: 1. Recent prolonged hospitalization secondary to severe sepsis. 2. O2-dependent COPD (chronic obstructive pulmonary disease). 3. Acute blood loss anemia secondary to retroperitoneal bleed. 4. Second-degree heart block. 5. History of atrial fibrillation, not on chronic anticoagulation. 6. Hypertension. 7. Hyperlipidemia. 8. History of multiple myeloma. 9. Right lower extremity DVT. 10.History of urinary retention causing chronic indwelling Cummins. 11.Type 2 diabetes. 12.Status post bilateral total knee arthroplasties. 13.Glaucoma. 14.Depression. 15.BPH status post appendectomy and status post left clavicular radiation 2009. 16.Status post right shoulder surgery. 17.Status post right knee replacement 2000. 18.History of colon cancer, status post hemicolectomy, 5 of 2002. 19.History of bilateral PEs. 20.History of sleep apnea. ALLERGIES: BEE STINGS. MEDICATIONS: Currently are: 1. Dorzolamide drops. 2. Dulcolax suppository. ADMIT: 07/30/2016 RM/LOC: 311 [facility] MR#: [id number] [address] [address] [facility] [place] [address] History and Physical SEX: M AGE: 86 : 1930 3. Dulera b.i.d. 4. DuoNeb. 5. Flomax 0.4 p.o. daily. 6. Lasix 40 mg p.o. b.i.d. 7. Levothyroxine 50 mcg p.o. daily. 8. Lexapro 10 mg p.o. daily. 9. Multivitamin p.o. daily. 10.Neurontin 300 mg three capsules twice daily. 11.NovoLog sliding scale. 12.Protonix 40 mg p.o. daily. 13.Remeron 30 mg p.o. daily. 14.Spironolactone 25 mg p.o. daily. 15.Xalatan in each eye. SOCIAL HISTORY: He currently is residing at the group home. He does not smoke or use any significant alcohol. He is . He has very supportive family. FAMILY HISTORY: Relatively noncontributory. REVIEW OF SYSTEMS: Obtained and was otherwise essentially negative. PHYSICAL EXAMINATION: GENERAL: He is alert and oriented. He does complain of kind of some right sinus pressure, otherwise. HEENT: Pupils are equal, round, and reactive. Oropharynx has dry mucous membranes. NECK: Supple. HEART: Normal rate with a regular rhythm. LUNGS: Relatively clear to auscultation. ABDOMEN: Soft. EXTREMITIES: Have 2 to 3+ lower extremity edema. His right leg has Mepilex on. He has marked erythema up to his knee, and across his foot he has some spotty white erythematous spots on the bottom of his right foot. His left leg has less erythema. ASSESSMENT AND PLAN: 1. Hypotension at this time, does meet criteria for sepsis. We will go ahead and admit to the ICU, give him IV fluid boluses. I presume his source is from his legs. Chest x-ray is clear. We will go ahead and collect a UA also. 2. Anemia likely secondary to his chronic myeloma. We will monitor closely. 3. Hypokalemia, they are replacing. ADMIT: 07/30/2016 RM/LOC: 311 [facility] MR#: [id number] [address] [place] [id number] [facility] [address] History and Physical SEX: M AGE: 86 : 1930 4. History of acute renal failure. His creatinine now is normal. We will go ahead and monitor this closely also. 5. Code status. The patient does wish to be a DNR/DNI. 6. Atrial fibrillation. He is currently not anticoagulated. We will continue and not anticoagulate him at this time. 7. History of right leg deep venous thrombosis. We will go ahead and do a repeat venous Doppler as well as arterial Dopplers with his recurrent issue. 8. Glaucoma. Continue his drops. 9. General status. We will monitor closely. The patient with multiple issues and is critically ill. I did spend 40 minutes in the admission, evaluation, and treatment of this patient. Emy Adame MD/ kinza JOB #: [id number] CC: Zack Sanchez, Attending Physician Zack Sanchez, Family Physician
--- NOTE | 2016-08-27 21:25 | ER ---
ADMIT: 07/30/2016 RM/LOC: ER [facility] MR#: [id number] [address] [address] [place] [address] Emergency Room Report SEX: M AGE: 86 : 1930 DATE: 07/30/2016 This 86-year-old gentleman has been in the hospital recently for apparent pneumonia, [facility] and also had a recent hospitalization for cellulitis for which he had been seen in wound Care Clinic. Apparently today, the rash had worsened extensively in his lower extremities. He subsequently transferred here for evaluation of the erythema as well as low blood pressures. Here, the patient has no complaints, says his legs are always red, they may be a little worse, but he was not certain it was dramatically worse. He has had similar episodes in the past. He does say he has had episodes of shaking, chills recently. Denies cough. Does have bilateral swelling of his lower extremities, chronic indwelling Cummins. PAST MEDICAL HISTORY: Diabetes, hypertension, and cardiac disease. SOCIAL HISTORY: Does not smoke or drink. PHYSICAL EXAM: GENERAL: Reveals a pleasant 86-year-old gentleman. Alert, appropriate, and in no distress. Very pleasant. LUNGS: No added sounds, were clear. CARDIOVASCULAR: Irregular rate, irregular rhythm. I could not hear a murmur. ABDOMEN: Soft, nontender, positive bowel sounds. There is a chronic indwelling Cummins. EXTREMITIES: Show extensive erythema over the anterior portion with increased warmth. He does have 2 wounds that have been recently dressed over the anterior tib. There is also 3+ pedal edema. NEUROLOGIC: No focal findings. LABORATORY DATA: EKG shows atrial fibrillation. Pertinent labs; white count 12.9, hemoglobin 8.5. Potassium 3.0, magnesium is 1, CK is 544, MB is 4.3, troponin is 0.136. Chest x-ray is unremarkable. The patient is being admitted for 1. Cellulitis. 2. Hypomagnesemia. 3. Hypokalemia. Miah Vasquez MD/ kinza JOB #: [id number] CC: Zack Nath MD, Attending Physician Zack Sanchez MD, Family Physician
== END 2016-08-03 13:03 | DRG 872 ==
LOC: ER 17:46 → 4PCU 19:10 → 3ICU 19:10 → 4PCU 07-31 17:00
PROVIDERS: ADMIT Internal Medicine
DX: A41.9 Sepsis, unspecified organism (principal); C90.00 Multiple myeloma not having achieved remission; I82.509 Chronic embolism and thrombosis of unspecified deep veins of unspecified lower extremity; I44.1 Atrioventricular block, second degree; L97.909 Non-pressure chronic ulcer of unspecified part of unspecified lower leg with unspecified severity; L03.115 Cellulitis of right lower limb; L03.116 Cellulitis of left lower limb; E83.42 Hypomagnesemia; Z99.81 Dependence on supplemental oxygen; E11.9 Type 2 diabetes mellitus without complications; I10 Essential (primary) hypertension; I25.10 Atherosclerotic heart disease of native coronary artery without angina pectoris; E87.6 Hypokalemia; I48.91 Unspecified atrial fibrillation; F32.9 Major depressive disorder, single episode, unspecified; D64.9 Anemia, unspecified; G47.30 Sleep apnea, unspecified; J44.9 Chronic obstructive pulmonary disease, unspecified; E78.5 Hyperlipidemia, unspecified; H40.9 Unspecified glaucoma; N40.1 Benign prostatic hyperplasia with lower urinary tract symptoms; R33.8 Other retention of urine; Z96.651 Presence of right artificial knee joint; Z85.038 Personal history of other malignant neoplasm of large intestine; Z86.711 Personal history of pulmonary embolism; Z86.718 Personal history of other venous thrombosis and embolism; Z66 Do not resuscitate; I83.009 Varicose veins of unspecified lower extremity with ulcer of unspecified site